=== PATIENT | female | born 1975 | race Asian ===

== ENCOUNTER 2018-03-25 07:25 | Day surgery (SDC) | payer BC ==
[2018-03-25 08:32] VITALS: BMI 30.2
[2018-03-25] MEDS ORDERED: LIDOCAINE HCL/PF 2% SDV 5ML VIAL ONE (08:36)
[2018-03-25] MEDS ORDERED: PROPOFOL 20 ML ONE ×3 (08:36)
[2018-03-25 09:36] VITALS: TEMP 97.8
[2018-03-25 10:33] VITALS: BP 126/72; PULSE 56
--- NOTE | 2018-03-26 17:40 | PATH ---
Surgical Pathology Report Patient Name: SOLO CELIS [facility]. Rec. #: [id number] /Age/Gender: 1975 (Age: 42) / F Account: [id number] Location: U-ENDOSCOPY Taken: 03/25/2018 Received: 03/25/2018 Reported: 03/26/2018 Physicians: Shakeel Sotomayor M.D. Specimen(s) Received A: BX 2ND PORTION DUODENUM AND BULB B: BX ANTRUM C: BX GASTRIC FUNDUS POLYP D: BX CECUM POLYP Clinical History Screening, family history of colon cancer Postoperative diagnosis: Gastric fundus polyp, cecal polyp Final Diagnosis A. DUODENUM, SECOND PORTION AND BULB, BIOPSY: DUODENAL MUCOSA WITHOUT SIGNIFICANT PATHOLOGIC FINDINGS. B. STOMACH, ANTRUM, BIOPSY: GASTRIC ANTRAL MUCOSA WITH MILD CHRONIC GASTRITIS. IMMUNOHISTOCHEMICAL STAIN FOR H. PYLORI IS NEGATIVE. C. STOMACH, FUNDUS, POLYP, BIOPSY: FUNDIC GLAND POLYP. IMMUNOHISTOCHEMICAL STAIN FOR H. PYLORI IS NEGATIVE. D. CECUM, POLYP, BIOPSY: TUBULAR ADENOMA. Electronically Signed Amelie Ann M.D. Gross Description A. Received in formalin, labeled "biopsy second portion of duodenum and bulb" are 3 rapp, irregular portions of soft tissue averaging 0.5 cm. in greatest dimension. The specimens are submitted in toto in one cassette. B. Received in formalin, labeled "biopsy antrum" are 3 rapp, irregular portions of soft tissue ranging from 0.2-0.5 cm. in greatest dimension. The specimens are submitted in toto in one cassette. C. Received in formalin, labeled "biopsy polyp gastric fundus" is a rapp, irregular portion of soft tissue measuring 0.4 cm. in greatest dimension. The specimen is submitted in toto in one cassette. D. Received in formalin, labeled "biopsy polyp cecum" is a rapp, irregular portion of soft tissue measuring 0.4 cm. in greatest dimension. The specimen is submitted in toto in one cassette. /03/25/2018 saudi/03/25/2018
== END 2018-03-25 10:25 | disposition home or self-care (01) ==
LOC: JASU-ENDO 07:25
PROVIDERS: ATTEND Internal Medicine Gastroenterology
PROC: 0DB98ZX Excision of Duodenum, Via Natural or Artificial Opening Endoscopic, Diagnostic (ICD-10-PCS; 2018-03-25)
PROC: 0DB78ZX Excision of Stomach, Pylorus, Via Natural or Artificial Opening Endoscopic, Diagnostic (ICD-10-PCS; 2018-03-25)
PROC: 0DBH8ZX Excision of Cecum, Via Natural or Artificial Opening Endoscopic, Diagnostic (ICD-10-PCS; principal; 2018-03-25 08:45)
DX: Z12.11 Encounter for screening for malignant neoplasm of colon (principal); Z80.0 Family history of malignant neoplasm of digestive organs; D12.0 Benign neoplasm of cecum; Q43.8 Other specified congenital malformations of intestine; R10.13 Epigastric pain; K31.7 Polyp of stomach and duodenum; K29.50 Unspecified chronic gastritis without bleeding; K21.9 Gastro-esophageal reflux disease without esophagitis; E03.9 Hypothyroidism, unspecified; E78.5 Hyperlipidemia, unspecified
CPT/HCPCS: 84703; 88305-TC; 88342-TC

== ENCOUNTER 2019-11-12 04:50 | Day surgery (SDC) | payer OTHER ==
[2019-11-11 10:57] VITALS: BMI 27.9
--- NOTE | 2019-11-12 07:07 | HP ---
History & Physical Update - History History: No Change - Physical Physical: No Change - Assessment Assessment: No Change - Plan Plan: No Change (H&P reviwed ,no changes , for hysteroscopy D&C)
[2019-11-12] MEDS ORDERED: PROPOFOL 20 ML ONE (07:37)
[2019-11-12] MEDS ORDERED: MIDAZOLAM HCL 2 MG/2 ML SINGLE DOSE VIAL ONE (07:37)
[2019-11-12] MEDS ORDERED: LIDOCAINE HCL/PF 2% SDV 5ML VIAL ONE (07:38)
[2019-11-12] MEDS ORDERED: oxyCODONE HCL 5 MG TABLET PO PRN ×2 (08:08→08:28)
[2019-11-12] MEDS ORDERED: IBUPROFEN 600 MG TABLET (FP) PO PRN (08:08)
[2019-11-12] MEDS ORDERED: ONDANSETRON 4 MG/2 ML VIAL IVPUSH PRN ×2 (08:08→08:28)
[2019-11-12] MEDS ORDERED: IBUPROFEN 800 MG/8 ML IJ IVPB PRN (08:08)
[2019-11-12] MEDS ORDERED: KETOROLAC TROMETHAMINE 30 MG/1 ML VIAL ONE (08:12)
[2019-11-12] MEDS ORDERED: ELECTROLYTE-148 SOLN 1,000 ML IV SCH (08:15)
--- NOTE | 2019-11-12 08:21 | OP ---
Operative Note - Note: Operative Date: 11/12/19 Pre-Operative Diagnosis: menometrorrhagia, thicken EM Operation: hysteroscopy , D&C Findings: enlarged globular uterus, 10 weeks, thicken ,irregular EM, sevral small polyp Surgeon: Philip Rodriguez Anesthesiologist/SALESPERSON [employer]: Johnson Berry Anesthesia: General Specimens Removed: EMC Estimated Blood Loss (mls): 20 Drains & Tubes with Location: none Blood Volume Replaced (mls): 0 Operative Report Dictated: Yes
[2019-11-12] MEDS ORDERED: PROMETHAZINE HCL 25 MG/1 ML VIAL IVPUSH PRN (08:28)
[2019-11-12] MEDS ORDERED: LACTATED RINGERS SOLUTION 1,000 ML IV SCH (08:30)
[2019-11-12 09:11] VITALS: TEMP 98.4
[2019-11-12 15:12] VITALS: BP 110/60; PULSE 60
--- NOTE | 2019-11-15 16:29 | PATH ---
Surgical Pathology Report Patient Name: SOLO CELIS [facility]. Rec. #: [id number] /Age/Gender: 1975 (Age: 43) / F Account: [id number] Location: [facility] SURGICAL Taken: 11/12/2019 Received: 11/12/2019 Reported: 11/15/2019 Physicians: Philip Rodriguez M.D. Specimen(s) Received ENDOMETRIAL CURETTINGS Clinical History Menorrhagia, thickened endometrium Final Diagnosis ENDOMETRIAL CURETTINGS: FRAGMENTS OF PROLIFERATIVE ENDOMETRIUM WITH MILD CHRONIC ENDOMETRITIS AND FOCAL SYNCYTIAL EOSINOPHILIC CHANGE. SEPARATE FRAGMENTS OF ENDOCERVICAL TISSUE WITH SQUAMOUS METAPLASIA Electronically Signed Rubio Preciado M.D. Gross Description Received in formalin labeled "endometrial curettings," is a 4.5 x 3.0 x 0.5 cm aggregate of rapp-brown soft tissue fragments admixed with mucus. The formalin is filtered and the specimen is entirely submitted in 2 cassettes. /11/12/2019 [facility]11/12/2019
--- NOTE | 2019-11-23 18:58 | OP ---
DATE OF OPERATION: 11/12/2019 PREOPERATIVE DIAGNOSIS: Menorrhagia, thickened endometrium. POSTOPERATIVE DIAGNOSIS: Menorrhagia, thickened endometrium. PROCEDURE: Hysteroscopy, dilation and curettage. SURGEON: Philip Rodriguez MD. ANESTHESIA: General. ESTIMATED BLOOD LOSS: 20 mL. OPERATION: Patient was taken to operating room, adequate general anesthesia, position, examination under anesthesia revealed external genitalia to be normal. Vagina was normal, cervix was clean, no gross lesion. Uterus was prominent and globular. Adnexa, no masses were palpable. Then, with a weighted speculum in the vagina, anterior lip of the cervix was grasped with a single-toothed tenaculum. Cervix was gradually dilated with Hegar dilator. Then hysteroscope was introduced. Visualization of the endocervical canal appeared to be normal. The uterus cavity was enlarged with irregular endometrium. Both tubal ostia were identified. No submucous myoma noted. Then hysteroscope was withdrawn, and cervix was dilated again, and endometrial curetting was done. Patient tolerated procedure well, left the OR in good condition. PHILIP RODRIGUEZ M.D. [id number]
== END 2019-11-12 15:00 | disposition home or self-care (01) ==
LOC: JASU-SURG 04:50
PROVIDERS: ATTEND Obstetrics & Gynecology
PROC: 0UDB7ZX Extraction of Endometrium, Via Natural or Artificial Opening, Diagnostic (ICD-10-PCS; principal; 2019-11-12 08:00)
PROC: 0UJD8ZZ Inspection of Uterus and Cervix, Via Natural or Artificial Opening Endoscopic (ICD-10-PCS; 2019-11-12 08:00)
DX: N92.0 Excessive and frequent menstruation with regular cycle (principal)
CPT/HCPCS: 88305-TC; 94760

== ENCOUNTER 2022-05-22 10:20 | Day surgery (SDC) | payer OTHER ==
[2022-05-21 11:46] VITALS: BMI 29.8
[2022-05-22] MEDS ORDERED: PROPOFOL 120 ML ONE (11:08)
[2022-05-22 12:20] VITALS: RESP 16; TEMP 97.5
[2022-05-22 13:16] VITALS: BP 100/57; PULSE 56
== END 2022-05-22 13:10 | disposition home or self-care (01) ==
LOC: FASU-ENDO 10:20
PROVIDERS: ATTEND Internal Medicine Gastroenterology
PROC: 0DBH8ZX Excision of Cecum, Via Natural or Artificial Opening Endoscopic, Diagnostic (ICD-10-PCS; principal; 2022-05-22 11:36)
DX: Z12.11 Encounter for screening for malignant neoplasm of colon (principal); Z86.010 Personal history of colon polyps; K64.1 Second degree hemorrhoids; K63.89 Other specified diseases of intestine
CPT/HCPCS: 84703; 88305-TC

== ENCOUNTER 2023-08-19 04:03 | Day surgery (SDC) | payer OTHER ==
[2023-08-14 16:27] VITALS: BMI 30.9
[2023-08-19] MEDS ORDERED: MIDAZOLAM HCL 2 MG/2 ML SINGLE DOSE VIAL ONE (10:32)
[2023-08-19] MEDS ORDERED: PROPOFOL 20 ML ONE (10:32)
[2023-08-19] MEDS ORDERED: DEXAMETHASONE SOD PHOSPHATE 4 MG/1 ML VIAL ONE (10:32)
[2023-08-19] MEDS ORDERED: FENTANYL CITRATE/PF 50 MCG/ML VIAL ONE ×3 (10:32→11:43)
[2023-08-19] MEDS ORDERED: ONDANSETRON 4 MG/2 ML VIAL ONE (10:32)
[2023-08-19] MEDS ORDERED: LIDOCAINE HCL/PF 2% SDV 5ML VIAL ONE (10:54)
[2023-08-19] MEDS ORDERED: KETOROLAC TROMETHAMINE 30 MG/1 ML VIAL ONE (10:54)
[2023-08-19] MEDS ORDERED: IBUPROFEN 800 MG/8 ML IJ IVPB PRN (11:13)
[2023-08-19] MEDS ORDERED: oxyCODONE HCL 5 MG TABLET PO PRN (11:13)
[2023-08-19] MEDS ORDERED: IBUPROFEN 600 MG TABLET (FP) PO PRN (11:13)
[2023-08-19] MEDS ORDERED: ONDANSETRON 4 MG/2 ML VIAL IVPUSH PRN (11:13)
[2023-08-19] MEDS ORDERED: ELECTROLYTE-148 SOLN 1,000 ML IV SCH (11:15)
[2023-08-19] MEDS ORDERED: LACTATED RINGERS SOLUTION 1,000 ML IV SCH (11:30)
[2023-08-19 13:30] VITALS: RESP 18
[2023-08-19 17:18] VITALS: BP 109/59; PULSE 54; TEMP 97.9
== END 2023-08-19 13:40 | disposition home or self-care (01) ==
LOC: JASU-SURG 04:03
PROVIDERS: ATTEND Obstetrics & Gynecology
PROC: 0UB98ZZ Excision of Uterus, Via Natural or Artificial Opening Endoscopic (ICD-10-PCS; principal; 2023-08-19 10:00)
DX: N92.0 Excessive and frequent menstruation with regular cycle (principal); N84.0 Polyp of corpus uteri; N80.03 Adenomyosis of the uterus
CPT/HCPCS: 81025; 88305-TC; 94760

== ENCOUNTER 2024-02-18 19:09 | Emergency (ER) | payer OTHER ==
[2024-02-18 19:18] VITALS: BP 130/75; PULSE 60; RESP 18; TEMP 98.2
[2024-02-18] MEDS ORDERED: LIDOCAINE 4% PATCH TP ONE (21:08)
[2024-02-18] MEDS ORDERED: ACETAMINOPHEN INJECTION 100 ML IVPB ONE (21:08)
[2024-02-18] MEDS ORDERED: ACETAMINOPHEN 500 MG TABLET (FP) ONE (21:12)
[2024-02-18] MEDS: LIDOCAINE 4% PATCH TP ONE (21:38)
[2024-02-18] MEDS: ACETAMINOPHEN 500 MG TABLET (FP) PO ONE (21:39)
[2024-02-18 21:46] LABS: BASO % 0.5 % (0-2.0); EOS % 0.9 % (0-4.5); HEMATOCRIT 31.5 % (32.4-45.2); HEMOGLOBIN 10.3 GM/dL (10.7-15.3); LYMPH % 36.6 % (8-40); MCH 24.8 pg (25.7-33.7); MCHC 32.7 g/dl (32.0-36.0); MEAN PLT VOLUME 7.7 fl (7.5-11.1); MONO % 4.4 % (3.8-10.2); NEUT % 57.6 % (42.8-82.8); PLATELET COUNT 278 10^3/uL (134-434); RBC 4.14 M/mm3 (3.60-5.2); RDW 16.2 % (11.6-15.6); WHITE BLOOD COUNT 5.5 K/mm3 (4.0-10.0)
[2024-02-18] MEDS ORDERED: LIDOCAINE PATCH REMOVAL MC SCH (22:00)
[2024-02-18 22:02] LABS: POTASSIUM 3.9 mmol/L (3.5-5.1)
[2024-02-18 22:04] LABS: CALCIUM 9.2 mg/dL (8.5-10.1)
[2024-02-18 22:05] LABS: ALBUMIN 3.7 g/dl (3.4-5.0); BLOOD UREA NITROGEN 12.2 mg/dL (7-18); MAGNESIUM 2.3 mg/dL (1.8-2.4)
[2024-02-18 22:08] LABS: CREATININE 0.6 mg/dL (0.55-1.3)
[2024-02-18 22:10] LABS: BILIRUBIN,TOTAL 0.1 mg/dL (0.2-1); TOT PROT 6.9 g/dl (6.4-8.2)
[2024-02-19] MEDS ORDERED: IBUPROFEN 600 MG TABLET (FP) PO ONE (00:39)
[2024-02-19] MEDS: IBUPROFEN 600 MG TABLET (FP) PO ONE (00:45)
[2024-02-19] MEDS: KETOROLAC TROMETHAMINE 15 MG/ML VIAL IVPUSH ONE (00:48)
== END 2024-02-19 01:35 | disposition home or self-care (01) ==
LOC: JER 19:09
DX: R07.89 Other chest pain (principal); R00.2 Palpitations
CPT/HCPCS: 36415; 71045-TC-FY; 80053; 83735; 84439; 84443; 84484; 85025; 93005; 93010; 99285-25